=== PATIENT | female | born 1955 | race Asian ===

== ENCOUNTER → 2019-05-22 | Outpatient (CLI) | payer OTHER ==
--- NOTE | 2019-05-22 14:19 | Diagnostic Imaging Report ---
Exam: Bone mineral density study. History: Osteopenia. Comparison: None Discussion: Evaluation of the left hip, and lumbar spine was performed utilizing DEXA Hologic bone densitometer. The study is technically adequate. Left hip total bone mineral density: 0.708gm/cm2, T-score is -1.9, Z-score is -0.8. Left hip femoral neck bone mineral density: 0.580gm/cm2, T-score is -2.4, Z-score is -1.0. Lumbar spine total bone mineral density:0.760gm/cm2, T-score is-2.6, Z-score is -1.0. Impression: 1. Osteopenia of the left hip, fracture risk is increased 2. Osteoporosis of the lumbar spine, fracture risk is high Least significant change (LSC) for bone mineral density as provided by dust mop maker is 0.023 g/cm2 for lumbar spine and 0.027 g/cm2 for total hip. 10 -year fracture risk per WHO Fracture Risk Assessment Tool (FRAX) for: Not reported because some T-scores at or below -2.5 The patient's fracture risk is compared to an age-matched control. Medical evaluation for secondary causes of low bone bone mineral density may be appropriate. Correlate clinically for the necessity and timing of the next bone mineral density study. Signed by: Dr. Kyle Molina M.D. on 05/22/2019 2:15 PM
== END ==
LOC: MAMMO 08:23
PROVIDERS: ATTEND Internal Medicine
DX: Z12.31 Encounter for screening mammogram for malignant neoplasm of breast (principal); M81.0 Age-related osteoporosis without current pathological fracture; M85.80 Other specified disorders of bone density and structure, unspecified site
CPT/HCPCS: 77067; 77080

== ENCOUNTER → 2020-02-09 | Outpatient (CLI) | payer OTHER ==
--- NOTE | 2020-02-09 09:41 | Diagnostic Imaging Report ---
Exam: KUB - 2 views Indication: Renal calculus Comparison: None Findings: No radiographically apparent renal calculi. Nonobstructive bowel gas pattern. No free air. No acute osseous injury. Impression: No radiographically apparent renal calculi. Signed by: Caden Fish MD on 02/09/2020 9:37 AM
== END ==
LOC: RAD 09:10
PROVIDERS: ATTEND Urology
DX: N20.0 Calculus of kidney (principal)
CPT/HCPCS: 74018